=== PATIENT | female | born 1935 | race Caucasian/White ===

== ENCOUNTER 2020-04-28 15:12 | Emergency (ER) | payer MEDICARE, OTHER ==
--- NOTE | 2020-04-28 16:10 | EDM.PDOC ---
ED HPI GENERAL MEDICAL PROBLEM - General Chief Complaint: Lower Extremity Injury/Pain Stated Complaint: TWISTED ANKLE Time Seen by Provider: 04/28/20 16:00 Source of Information: Reports: Patient, Family History Limitations: Reports: No Limitations - History of Present Illness INITIAL COMMENTS - FREE TEXT/NARRATIVE: 84-year-old female who [facility], turned her ankle 2 days ago and now cannot bear any weight on her right foot. She has significant swelling and pain in the ankle and foot on the right side. No significant bruising. She has limited ability to ambulate in her apartment due to the pain so has not taken her Lasix the last couple of days and has some edema in her lower extremities from that as well. Most of the pain is around the ankle and in the arch of her foot. No other injury. Onset: Sudden Duration: Day(s): (2 days ago) Location: Reports: Lower Extremity, Right Associated Symptoms: Reports: Other (Some increased lower extremity edema due to her not taking her medications) - Related Data Allergies Allergy/AdvReac Type Severity Reaction Status Date / Time No Known Allergies Allergy Verified 04/28/20 15:40 Home Meds: Home Meds Acetaminophen [Tylenol] 1,000 mg PO TID 04/28/20 [History] Brimonidine Tartrate/Timolol [Combigan 0.2%-0.5% Eye Drops] 1 drop EYELF BID 04/28/20 [History] Brinzolamide [Azopt 1% Ophth Susp] 1 drop EYELF BID 04/28/20 [History] Cholecalciferol (Vitamin D3) [Vitamin D] 1 tab PO DAILY 04/28/20 [History] Furosemide [Lasix] 1 tab PO DAILY 04/28/20 [History] Gabapentin [Neurontin] 300 mg PO BID 04/28/20 [History] amLODIPine Besylate [Amlodipine Besylate] 1 tab PO BID 04/28/20 [History] carvediloL [Carvedilol] 1 tab PO QAM 04/28/20 [History] lisinopriL [Lisinopril] 1 tab PO QAM 04/28/20 [History] predniSONE [Prednisone] 1 tab PO BEDTIME 04/28/20 [History] Past Medical History HEENT History: Reports: Cataract, Glaucoma Cardiovascular History: Reports: Hypertension [employer] History: Reports: - Infectious Disease History Infectious Disease History: Reports: Chicken Pox, Measles, Mumps, Scarlet Fever - Past Surgical History HEENT Surgical History: Reports: Cataract Surgery, Other (See Below) Other HEENT Surgeries/Procedures: drain in left eye to releive pressure Female Surgical History: Reports: Hysterectomy Musculoskeletal Surgical History: Reports: Hip Replacement Social & Family History - Tobacco Use Smoking Status *Q: Former Smoker Years of Tobacco use: 20 Packs/Tins Daily: 0.5 Used Tobacco, but Quit: Yes Month/Year Tobacco Last Used: - Caffeine Use Caffeine Use: Reports: Coffee - Recreational Drug Use Recreational Drug Use: No Review of Systems - Review of Systems Review Of Systems: See Below Constitutional: Denies: Fever Respiratory: Denies: Shortness of Breath, Cough Cardiovascular: Denies: Chest Pain GI/Abdominal: Denies: Abdominal Pain Musculoskeletal: Reports: Other (Significant right ankle and foot pain with swelling) Skin: Denies: Bruising Neurological: Denies: Paresthesia ED EXAM, GENERAL - Physical Exam Exam: See Below Exam Limited By: No Limitations General Appearance: Alert, No Apparent Distress Head: Atraumatic Respiratory/Chest: No Respiratory Distress Extremities: Other (Exam is otherwise limited to the lower extremities. She has some pitting edema of both lower extremities around the ankle and foot, the right side however is more significant especially laterally. She is very tender to palpation anywhere around the ankle or on the top of the foot, and has significant increased pain with plantarflexion especially against resistance.) Neurological: Alert, Oriented, Other (Very hard of hearing) Psychiatric: Normal Affect, Normal Mood Skin Exam: Warm, Dry Course - Vital Signs Last Recorded V/S: Last Vital Signs Temp 96.0 F L 04/28/20 15:51 Pulse 84 04/28/20 15:51 Resp 16 04/28/20 15:51 BP 175/74 H 04/28/20 15:51 Pulse Ox 96 04/28/20 15:51 - Orders/Labs/Meds Orders: Active Orders 24 hr Category Date Time Status Ankle Min 3V Rt [CR] Stat Exams 04/28/20 16:05 Taken Foot Comp Min 3V Rt [CR] Stat Exams 04/28/20 16:05 Taken - Re-Assessments/Exams Free Text/Narrative Re-Assessment/Exam: 04/28/20 16:09 An x-ray of the right foot and right ankle were obtained. 04/28/20 16:31 X-rays showed significant osteoporosis but no fracture. A 3 inch Saran wrap was applied to the foot and she will use her walker to assist with ambulation through the and recheck with podiatry at the clinic on Saturday if not improving satisfactorily. Departure - Departure Time of Disposition: 16:41 Disposition: Home, Self-Care 01 Clinical Impression: Sprain of right ankle Qualifiers: Encounter type: initial encounter Involved ligament of ankle: anterior talofibular ligament Qualified Code(s): S93.491A - Sprain of other ligament of right ankle, initial encounter - Discharge Information Instructions: Ankle Sprain, [id number] Referrals: Delroy Alexander Sr, MD [Primary Care Provider] - Forms: ED Department Discharge Care Plan Goals: Wrap the ankle and foot for support, elevate when able and increase activity as tolerated. Recheck at the clinic next Saturday with Dr. Alba if not improving satisfactorily. Sepsis Event Note (ED) - Evaluation Sepsis Screening Result: No Definite Risk - My Orders Last 24 Hours: My Active Orders 04/28/20 16:05 Ankle Min 3V Rt [CR] Stat Foot Comp Min 3V Rt [CR] Stat - Assessment/Plan Last 24 Hours: My Active Orders 04/28/20 16:05 Ankle Min 3V Rt [CR] Stat Foot Comp Min 3V Rt [CR] Stat
--- NOTE | 2020-04-29 08:52 | CR ---
Ankle Min 3V Rt CLINICAL HISTORY: Pain, injury FINDINGS: The soft tissues are swollen, particularly over the lateral malleolus.. Bones are moderately osteoporotic. There is osteoarthritis. There is an ill-defined to the irregular linear lucency through the distal fibula. Nondisplaced fracture is not excluded. Impression: Moderate osteoporosis Osteoarthritis Irregular linear lucency through the distal fibula may represent a nondisplaced fracture. If clinically relevant short-term follow-up ankle x-ray is recommended
--- NOTE | 2020-04-29 08:54 | CR ---
FOOT RIGHT 3 views CLINICAL HISTORY:Pain, injury FINDINGS:There is a small calcaneal spur. Bones are osteopenic. There is diffuse osteoarthritic change. There are arterial calcifications suggesting diabetes. Impression: Osteoporosis Osteoarthritis No fracture seen
== END 2020-04-28 16:41 | disposition home or self-care (01) ==
LOC: JP.ED 15:12
DX: S93.491A Sprain of other ligament of right ankle, initial encounter (principal); I10 Essential (primary) hypertension; Z79.899 Other long term (current) drug therapy; Z87.891 Personal history of nicotine dependence; X58.XXXA Exposure to other specified factors, initial encounter; Y92.099 Unspecified place in other non-institutional residence as the place of occurrence of the external cause
CPT/HCPCS: 73610-26-RT; 73610-RT; 73630-26-RT; 73630-RT; 99283; 99283-25

== ENCOUNTER 2021-06-29 21:33 | Emergency (ER) | payer MEDICARE, OTHER ==
--- NOTE | 2021-06-30 00:42 | EDM.PDOC ---
ED HPI GENERAL MEDICAL PROBLEM - General Chief Complaint: Respiratory Problem Stated Complaint: VIA [facility] Time Seen by Provider: 06/29/21 21:44 Source of Information: Reports: Patient, EMS History Limitations: Reports: Other (It is very hard of hearing limiting her answering questions.) - History of Present Illness INITIAL COMMENTS - FREE TEXT/NARRATIVE: Isamar Deluna is an 86-year-old female who presents to the ED from the local assisted living via [facility] for evaluation of increased weakness, difficulty breathing in the presence of having Covid for the last 10 days. Unfortunately information is very limited as the patient normally sees Delroy Alexander MD and therefore has no local medical records accessible. She does live in assisted living but has been having increasing difficulty getting around because of the weakness. She cannot elaborate on what exactly prompted her to come in by ambulance today but she just states that she does not feel well. Her oxygenation has been 91 to 92% on room air without activity. She is afebrile. - Related Data Allergies Allergy/AdvReac Type Severity Reaction Status Date / Time No Known Allergies Allergy Verified 06/29/21 21:37 Home Meds: Home Meds Acetaminophen [Tylenol] 1,000 mg PO TID 04/28/20 [History] Brimonidine Tartrate/Timolol [Combigan 0.2%-0.5% Eye Drops] 1 drop EYELF BID 04/28/20 [History] Brinzolamide [Azopt 1% Ophth Susp] 1 drop EYELF BID 04/28/20 [History] Cholecalciferol (Vitamin D3) [Vitamin D] 1 tab PO DAILY 04/28/20 [History] Furosemide [Lasix] 1 tab PO DAILY 04/28/20 [History] Gabapentin [Neurontin] 300 mg PO BID 04/28/20 [History] amLODIPine Besylate [Amlodipine Besylate] 1 tab PO BID 04/28/20 [History] carvediloL [Carvedilol] 1 tab PO QAM 04/28/20 [History] lisinopriL [Lisinopril] 1 tab PO QAM 04/28/20 [History] predniSONE [Prednisone] 1 tab PO BEDTIME 04/28/20 [History] Past Medical History HEENT History: Reports: Cataract, Glaucoma Cardiovascular History: Reports: Hypertension 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: - Infectious Disease History Infectious Disease History: Reports: Chicken Pox, Measles, Mumps, Scarlet Fever - Past Surgical History HEENT Surgical History: Reports: Cataract Surgery, Other (See Below) Other HEENT Surgeries/Procedures: drain in left eye to releive pressure Female Surgical History: Reports: Hysterectomy Musculoskeletal Surgical History: Reports: Hip Replacement Social & Family History - Tobacco Use Tobacco Use Status *Q: Never Tobacco User - Caffeine Use Caffeine Use: Reports: None - Recreational Drug Use Recreational Drug Use: No ED ROS GENERAL - Review of Systems Review Of Systems: See Below Reason Not Obtained: Review of system is limited by the patient's ability to hear Constitutional: Reports: Chills, Malaise, Weakness, Decreased Appetite HEENT: Reports: No Symptoms Respiratory: Reports: Shortness of Breath, Cough Cardiovascular: Reports: No Symptoms Endocrine: Reports: Fatigue GI/Abdominal: Reports: Diarrhea, Nausea Musculoskeletal: Reports: Muscle Pain Neurological: Reports: Weakness (Generalized weakness), Other (Hard of hearing) Psychiatric: Reports: Anxiety Hematologic/Lymphatic: Reports: No Symptoms Immunologic: Reports: No Symptoms ED EXAM, GENERAL - Physical Exam Exam: See Below Exam Limited By: Other (Patient is very hard of hearing) General Appearance: Alert, Anxious, Mild Distress (Very whiny) Eye Exam: Bilateral Eye: EOMI, PERRL Nose: Clear Rhinorrhea Throat/Mouth: Normal Inspection, Normal Oropharynx, Normal Voice, No Airway Compromise Head: Atraumatic, Normocephalic Neck: Normal Inspection, Supple Respiratory/Chest: No Respiratory Distress, Lungs Clear, Normal Breath Sounds, No Accessory Muscle Use Cardiovascular: Normal Peripheral Pulses, Regular Rate, Rhythm, No Murmur Peripheral Pulses: 2+: Radial (L), Radial (R) GI/Abdominal: Soft, Non-Tender, Abnormal Bowel Sounds (Increased bowel sounds) Extremities: Non-Tender, No Pedal Edema, Normal Capillary Refill Neurological: Alert, No Motor/Sensory Deficits Psychiatric: Anxious Skin Exam: Warm, Dry Course - Vital Signs Last Recorded V/S: Last Vital Signs Temp 36.4 C 06/29/21 21:39 Pulse 84 06/30/21 01:04 Resp 18 06/29/21 23:49 BP 132/69 06/30/21 01:04 Pulse Ox 89 L 06/30/21 01:04 - Orders/Labs/Meds Orders: Active Orders 24 hr Category Date Time Status Ang Chest [CT] Stat Exams 06/30/21 00:48 Ordered Chest 1V Frontal [CR] Stat Exams 06/29/21 21:44 Taken UA W/MICROSCOPIC [URIN] Stat Lab 06/29/21 21:44 Ordered Iopamidol [Isovue-370 (76%)] Med 06/30/21 02:15 Active 57 ml IV . DIRECTED Sodium Chloride 0.9% [Normal Saline] 84 ml Med 06/30/21 02:15 Active IV ASDIRECTED Sodium Chloride 0.9% [Saline Flush] Med 06/30/21 00:48 Active 10 ml FLUSH ASDIRECTED PRN Saline Lock Insert [OM.PC] Routine Oth 06/30/21 00:48 Ordered Medication Orders Sodium Chloride (Normal Saline) 84 mls @ 3 mls/sec IV ASDIRECTED PACHECO Iopamidol (Iopamidol 755 Mg/Ml 100 Ml Bottle) 57 ml IV . DIRECTED PACHECO Sodium Chloride (Sodium Chloride 0.9% 10 Ml Syringe) 10 ml FLUSH ASDIRECTED PRN PRN Reason: Keep Vein Open Labs: Laboratory Tests 06/29/21 06/29/21 06/29/21 Range/Units 22:22 22:22 22:22 WBC 4.1 L (4.5-11.0) K/uL RBC 3.59 (3.30-5.50) M/uL Hgb 11.8 L (12.0-15.0) g/dL Hct 36.0 (36.0-48.0) % MCV 100 H (80-98) fL MCH 33 H (27-31) pg MCHC 33 (32-36) % Plt Count 86 L (150-400) K/uL Neut % (Auto) 74.4 H (36-66) % Lymph % (Auto) 17.6 L (24-44) % Cedar % (Auto) 7.6 H (2-6) % Eos % (Auto) 0.2 L (2-4) % Baso % (Auto) 0.2 (0-1) % D-Dimer, Quantitative 1133.22 H (0.0-500.0) ng/mL Sodium 136 L (140-148) mmol/L Potassium 3.6 (3.6-5.2) mmol/L Chloride 100 (100-108) mmol/L Carbon Dioxide 22 (21-32) mmol/L Anion Gap 17.6 H (5.0-14.0) mmol/L BUN 21 H (7-18) mg/dL Creatinine 1.0 (0.6-1.0) mg/dL Est Cr Clr Drug Dosing 38.50 mL/min Estimated GFR (MDRD) 53 L (>60) Glucose 73 L (74-106) mg/dL Lactic Acid (0.4-2.0) mmol/L Calcium 8.3 L (8.5-10.1) mg/dL Ferritin 399 H (8-388) ng/ml Total Bilirubin 0.4 (0.2-1.0) mg/dL AST 29 (15-37) U/L ALT 25 (12-78) U/L Alkaline Phosphatase 69 (46-116) U/L Lactate Dehydrogenase 175 (82-234) U/L C-Reactive Protein 12.76 H (0.0-0.3) mg/dL Total Protein 5.8 L (6.4-8.2) g/dL Albumin 2.7 L (3.4-5.0) g/dL Globulin 3.1 (2.3-3.5) g/dL Albumin/Globulin Ratio 0.9 L (1.2-2.2) SARS-CoV-2 RNA (JOSE MANUEL) (NEGATIVE) 06/29/21 06/29/21 Range/Units 22:22 22:36 WBC (4.5-11.0) K/uL RBC (3.30-5.50) M/uL Hgb (12.0-15.0) g/dL Hct (36.0-48.0) % MCV (80-98) fL MCH (27-31) pg MCHC (32-36) % Plt Count (150-400) K/uL Neut % (Auto) (36-66) % Lymph % (Auto) (24-44) % Cedar % (Auto) (2-6) % Eos % (Auto) (2-4) % Baso % (Auto) (0-1) % D-Dimer, Quantitative (0.0-500.0) ng/mL Sodium (140-148) mmol/L Potassium (3.6-5.2) mmol/L Chloride (100-108) mmol/L Carbon Dioxide (21-32) mmol/L Anion Gap (5.0-14.0) mmol/L BUN (7-18) mg/dL Creatinine (0.6-1.0) mg/dL Est Cr Clr Drug Dosing mL/min Estimated GFR (MDRD) (>60) Glucose (74-106) mg/dL Lactic Acid 1.0 (0.4-2.0) mmol/L Calcium (8.5-10.1) mg/dL Ferritin (8-388) ng/ml Total Bilirubin (0.2-1.0) mg/dL AST (15-37) U/L ALT (12-78) U/L Alkaline Phosphatase (46-116) U/L Lactate Dehydrogenase (82-234) U/L C-Reactive Protein (0.0-0.3) mg/dL Total Protein (6.4-8.2) g/dL Albumin (3.4-5.0) g/dL Globulin (2.3-3.5) g/dL Albumin/Globulin Ratio (1.2-2.2) SARS-CoV-2 RNA (JOSE MANUEL) Positive H (NEGATIVE) Meds: Medications Generic Name Dose Route Start Last Admin Trade Name Freq PRN Reason Stop Dose Admin Sodium Chloride 84 mls @ 3 mls/sec 06/30/21 02:15 Normal Saline IV ASDIRECTED PACHECO Iopamidol 57 ml 06/30/21 02:15 Iopamidol 755 Mg/Ml 100 Ml Bottle IV . DIRECTED PACHECO Sodium Chloride 10 ml 06/30/21 00:48 Sodium Chloride 0.9% 10 Ml Syringe FLUSH ASDIRECTED PRN Keep Vein Open Discontinued Medications Generic Name Dose Route Start Last Admin Trade Name Freq PRN Reason Stop Dose Admin Sodium Chloride 10 ml 06/30/21 02:15 Sodium Chloride 0.9% 10 Ml Syringe FLUSH 06/30/21 02:16 ONETIME ONE - Radiology Interpretation Free Text/Narrative:: Reviewed the 1 view chest x-ray which does not show any acute infiltrates. There is hyperinflation of the lungs consistent with COPD. - Re-Assessments/Exams Free Text/Narrative Re-Assessment/Exam: 06/30/21 00:44 I reviewed the patient's labs showing a leukocyte count of 4.1, hemoglobin of 11.8, hematocrit of 36.0 and a platelet count of 86,000. The comprehensive metabolic panel is remarkable for a sodium 136, potassium 3.6, chloride 100, bicarbonate of 22, BUN of 21 with a creatinine 1.0 and a glucose of 73. GFR is calculated at 53. Her AST and ALT are both normal. Alkaline phosphatase is normal. The C-reactive protein is elevated at 12.76, the ferritin is elevated at 3.99, and the D-dimer is markedly elevated at 1133. We will proceed with a CT angiogram of the chest to make sure that there is not evidence of pulmonary emboli. The patient is borderline on requiring hospitalization with her SPO2 ranging anywhere from 88 to 92% on room air. She does have comorbidities given her advanced age, lack of vaccination status, and her COPD. I will try to arrange for a bed for her, however, we are currently full at this time. It is believed that she was Covid positive more than 10 days ago so she is not eligible for the monoclonal antibody. 06/30/21 01:06 I discussed the case with Dr. Ramirez at [facility] who states that they have beds but is not willing to accept the patient until the day crew comes on at 7 AM. He recommends calling back after 7 AM for acceptance. 06/30/21 02:12 I discussed the case with Dr. Gilbert from [facility] in [place], [place] who accepts the patient in transfer for admission to their facility for further care. 06/30/21 02:[address] angiogram of the chest. Departure - Departure Time of Disposition: 02:13 Disposition: DC/Tfer to [facility], [facility] 02 Clinical Impression: COVID-19, Hypoxia - Discharge Information Referrals: Delroy Alexander Sr, MD [Primary Care Provider] - Forms: ED Department Discharge Sepsis Event Note (ED) - Evaluation Sepsis Screening Result: No Definite Risk - Focused Exam Vital Signs: Vital Signs Temp Pulse Resp BP Pulse Ox 06/30/21 01:04 84 132/69 89 L 06/29/21 23:49 83 18 115/70 93 L 06/29/21 22:30 82 127/63 92 L 06/29/21 21:39 36.4 C 89 20 147/81 H 93 L - Problem List & Annotations (1) COVID-19 SNOMED Code(s): 588467305 Code(s): U07.1 - COVID-19 Status: Acute Priority: High Current Visit: Yes (2) Hypoxia SNOMED Code(s): 390296478 Code(s): R09.02 - HYPOXEMIA Status: Acute Priority: High Current Visit: Yes - Problem List Review Problem List Initiated/Reviewed/Updated: Yes - My Orders Last 24 Hours: My Active Orders 06/29/21 21:44 Chest 1V Frontal [CR] Stat UA W/MICROSCOPIC [URIN] Stat 06/30/21 00:48 Ang Chest [CT] Stat Sodium Chloride 0.9% [Saline Flush] 10 ml FLUSH ASDIRECTED PRN Saline Lock Insert [OM.PC] Routine 06/30/21 02:15 Iopamidol [Isovue-370 (76%)] 57 ml IV . DIRECTED Sodium Chloride 0.9% [Normal Saline] 84 ml IV ASDIRECTED - Assessment/Plan Last 24 Hours: My Active Orders 06/29/21 21:44 Chest 1V Frontal [CR] Stat UA W/MICROSCOPIC [URIN] Stat 06/30/21 00:48 Ang Chest [CT] Stat Sodium Chloride 0.9% [Saline Flush] 10 ml FLUSH ASDIRECTED PRN Saline Lock Insert [OM.PC] Routine 06/30/21 02:15 Iopamidol [Isovue-370 (76%)] 57 ml IV . DIRECTED Sodium Chloride 0.9% [Normal Saline] 84 ml IV ASDIRECTED
[2021-06-30] MEDS ORDERED: Sodium Chloride 0.9% 10 ML Syringe FLUSH PRN (00:48)
[2021-06-30] MEDS ORDERED: Sodium Chloride 0.9% 10 ML Syringe FLUSH ONE (02:15)
[2021-06-30] MEDS ORDERED: Iopamidol 755 Mg/ML 100 ML Bottle IV SCH (02:15)
--- NOTE | 2021-06-30 09:25 | CR ---
CHEST: Portable 06/29/2021 at 10:04 PM CLINICAL HISTORY:Dyspnea, weakness, covid COMPARISON:2012 FINDINGS: Heart size and pulmonary vascularity are normal. Patient has large hiatal hernia. There is left lower hemithorax opacification which may represent some superimposed consolidation. There may be a small left effusion. Right lung is clear Impression: Dense left lower lobe infiltrate or consolidation Large hiatal hernia
== END 2021-06-30 03:22 ==
LOC: JP.ED 21:33
DX: U07.1 COVID-19 (principal); R09.02 Hypoxemia; I10 Essential (primary) hypertension; Z79.899 Other long term (current) drug therapy
CPT/HCPCS: 36415; 71045; 80053; 82728; 83605; 83615; 85025; 85379; 86140; 99285; U0002

== ENCOUNTER 2021-07-13 09:54 | Inpatient (IN) | payer MEDICARE, OTHER ==
[2021-07-13] MEDS ORDERED: Sodium Chloride 0.9% 1,000 ML IV SCH ×2 (10:00→17:00)
--- NOTE | 2021-07-13 10:34 | EDM.PDOC ---
<Joe Smith - Last Filed: 07/13/21 18:11> ED HPI GENERAL MEDICAL PROBLEM - General Chief Complaint: General Stated Complaint: TIRED WEAKNESS Time Seen by Provider: 07/13/21 10:10 Source of Information: Reports: EMS, Snf Records History Limitations: Reports: Physical Impairment (Patient is minimally responsive, really not answering questions consistently) - History of Present Illness INITIAL COMMENTS - FREE TEXT/NARRATIVE: 86-year-old female who is in the assisted living section of the [facility] but over the past several weeks has been doing very poorly, failing to care for herself, never getting out of bed and soiling herself in bed. She is not eating or drinking, she is a DNR and seems to have no interest i n living. She was sent in by ambulance to get hydrated, but mainly to move [facility] for the consideration of hospice or comfort care. Onset: Unknown/Unsure Duration: Chronic Associated Symptoms: Reports: Confusion, Other (Decreased responsiveness, decreased oral intake. Incontinence) - Related Data Allergies Allergy/AdvReac Type Severity Reaction Status Date / Time No Known Allergies Allergy Verified 07/13/21 09:59 Home Meds: Home Meds Acetaminophen [Tylenol] 1,000 mg PO TID 04/28/20 [History] Brimonidine Tartrate/Timolol [Combigan 0.2%-0.5% Eye Drops] 1 drop EYELF BID 04/28/20 [History] Brinzolamide [Azopt 1% Ophth Susp] 1 drop EYELF BID 04/28/20 [History] Cholecalciferol (Vitamin D3) [Vitamin D] 1 tab PO DAILY 04/28/20 [History] Furosemide [Lasix] 1 tab PO DAILY PRN 04/28/20 [History] Gabapentin [Neurontin] 200 mg PO BID 04/28/20 [History] amLODIPine Besylate [Amlodipine Besylate] 1 tab PO BID 04/28/20 [History] carvediloL [Carvedilol] 1 tab PO BID 04/28/20 [History] lisinopriL [Lisinopril] 1 tab PO QAM 04/28/20 [History] Calcium Carbonate [Calcium Antacid] 500 mg PO DAILY 07/13/21 [History] Ergocalciferol (Vitamin D2) [Vitamin D2] 1.25 mg PO WEEKLY 07/13/21 [History] Folic Acid 1 mg PO DAILY 07/13/21 [History] Multivit-Min/FA/Lycopen/Lutein [Certavite Senior Tablet] 1 tab PO DAILY 07/13/21 [History] metHOTREXate sodium [Methotrexate] 4 tab PO WEEKLY 07/13/21 [History] Past Medical History HEENT History: Reports: Cataract, Glaucoma Cardiovascular History: Reports: Hypertension [employer] History: Reports: - Infectious Disease History Infectious Disease History: Reports: Chicken Pox, Measles, Mumps, Novel Coronavirus, Scarlet Fever - Past Surgical History Head Surgeries/Procedures: Reports: None HEENT Surgical History: Reports: Cataract Surgery, Other (See Below) Other HEENT Surgeries/Procedures: drain in left eye to releive pressure Cardiovascular Surgical History: Reports: None Female Surgical History: Reports: Hysterectomy Musculoskeletal Surgical History: Reports: Hip Replacement Social & Family History - Caffeine Use Caffeine Use: Reports: None ED ROS GENERAL - Review of Systems Review Of Systems: See Below Reason Not Obtained: Obtained from nursing notes and EMS only Constitutional: Denies: Fever 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) Respiratory: Denies: Shortness of Breath Cardiovascular: Denies: Chest Pain GI/Abdominal: Denies: Nausea, Vomiting : Reports: Incontinence Skin: Reports: Bruising (Bruising is present on the extremities) Neurological: Reports: Confusion, Weakness ED EXAM, GENERAL - Physical Exam Exam: See Below Exam Limited By: Other (Unable to cooperate, lethargic) General Appearance: Lethargic Eye Exam: Left Eye: Other (Significant scarring from past injury to the left cornea) Throat/Mouth: Other (Somewhat dry mucous membranes) Head: Atraumatic, Normocephalic Neck: Supple, Non-Tender Respiratory/Chest: Lungs Clear Cardiovascular: Regular Rate, Rhythm GI/Abdominal: Soft, Non-Tender Extremities: Other Neurological: Inattentive, Confused (Somewhat cachectic extremities, no edema), Slow to Respond Psychiatric: Depressed Mood Skin Exam: Warm, Dry, Other (Skin is very thin especially the lower extremities show scattered bruising and vascular insufficiency changes) Course - Re-Assessments/Exams Free Text/Narrative Re-Assessment/Exam: 07/13/21 10:33 Patient will be hydrated with 500 cc an hour normal saline, a quick cath in and out UA was obtained as well as a CBC and BMP however other than hydration no further care will be given at this time. Discharge planning consultation will be done to attempt to get the patient admitted into the continuous [facility] area of the jail 07/13/21 11:58 Labs returned showing dehydration with very high ketones in her urine as well as a UTI. Urine was cultured and 1 g of Rocephin IV was given along with the IV fluids. Discharge planning consultation is pending. 07/13/21 15:33 Patient did become somewhat more alert after the IV fluids but still confused and somewhat agitated. According to the family and nursing, she was ambulating and visiting 4 days ago so this is a fairly significant change so a CT of her head without contrast was ordered. 07/13/21 16:[address] showed significant atrophy but no acute findings. Patient will be held in the emergency room until an admit bed is available to initiate comfort cares and consult hospice if the family wishes. 07/13/21 18:11 Care was turned over to evening shift to continue watching the patient and treat symptomatically for comfort until admission tomorrow. Departure - Departure Disposition: Admitted As Inpatient 67 Clinical Impression: Mild dehydration, Weakness UTI (urinary tract infection) Qualifiers: Urinary tract infection type: site unspecified Hematuria presence: without hematuria Qualified Code(s): N39.0 - Urinary tract infection, site not specified - Discharge Information Referrals: PCP,None [Primary Care Provider] - Forms: ED Department Discharge Sepsis Event Note (ED) - Evaluation Sepsis Screening Result: No Definite Risk <Reza Hinkle - Last Filed: 07/13/21 21:58> Course - Vital Signs Last Recorded V/S: Last Vital Signs Temp 36.3 C 07/13/21 10:15 Pulse 95 07/13/21 10:15 Resp 13 07/13/21 10:15 BP 138/72 07/13/21 10:15 Pulse Ox 91 L 07/13/21 10:15 - Orders/Labs/Meds Orders: Active Orders 24 hr Category Date Time Status CULTURE URINE [RM] Stat Lab 07/13/21 11:17 Received Sodium Chloride 0.9% [Normal Saline] 1,000 ml Med 07/13/21 10:00 Active IV ASDIRECTED Sodium Chloride 0.9% [Normal Saline] 1,000 ml Med 07/13/21 17:00 Active IV ASDIRECTED Medication Orders Sodium Chloride (Normal Saline) 1,000 mls @ 1,000 mls/hr IV ASDIRECTED PACHECO Last Admin: 07/13/21 10:55 Dose: 1,000 mls/hr Documented by: RUBENS Sodium Chloride (Normal Saline) 1,000 mls @ 500 mls/hr IV ASDIRECTED PACHECO Last Admin: 07/13/21 16:58 Dose: 500 mls/hr Documented by: RUBENS Labs: Laboratory Tests 07/13/21 07/13/21 07/13/21 Range/Units 10:19 10:19 10:34 WBC 13.0 H (4.5-11.0) K/uL RBC 3.55 (3.30-5.50) M/uL Hgb 11.8 L (12.0-15.0) g/dL Hct 36.1 (36.0-48.0) % MCV 102 H (80-98) fL MCH 33 H (27-31) pg MCHC 33 (32-36) % Plt Count 126 L (150-400) K/uL Neut % (Auto) 78.6 H (36-66) % Lymph % (Auto) 10.2 L (24-44) % Pope % (Auto) 10.9 H (2-6) % Eos % (Auto) 0.2 L (2-4) % Baso % (Auto) 0.1 (0-1) % Sodium 134 L (140-148) mmol/L Potassium 4.2 (3.6-5.2) mmol/L Chloride 97 L (100-108) mmol/L Carbon Dioxide 23 (21-32) mmol/L Anion Gap 18.2 H (5.0-14.0) mmol/L BUN 18 (7-18) mg/dL Creatinine 0.9 (0.6-1.0) mg/dL Est Cr Clr Drug Dosing 43.02 mL/min Estimated GFR (MDRD) 60 (>60) Glucose 51 L (74-106) mg/dL Calcium 8.4 L (8.5-10.1) mg/dL Urine Color Yellow (YELLOW) Urine Appearance Cloudy A (CLEAR) Urine pH 7.0 (5.0-8.0) Ur Specific [place] 1.025 (1.008-1.030) Urine Protein 30 H (NEGATIVE) mg/dL Urine Glucose (UA) Negative (NEGATIVE) mg/dL Urine Ketones >=160 H (NEGATIVE) mg/dL Urine Occult Blood Small H (NEGATIVE) Urine Nitrite Positive H (NEGATIVE) Urine Bilirubin Negative (NEGATIVE) Urine Urobilinogen 1.0 (0.2-1.0) EU/dL Ur Leukocyte Esterase Large H (NEGATIVE) Urine RBC 10-20 H (0-5) Urine WBC 75-100 H (0-5) Ur Epithelial Cells Rare Amorphous Sediment Not seen Urine Bacteria Many Urine Mucus Moderate Meds: Medications Generic Name Dose Route Start Last Admin Trade Name Freq PRN Reason Stop Dose Admin Sodium Chloride 1,000 mls @ 1,000 mls/hr 07/13/21 10:00 07/13/21 10:55 Normal Saline IV 1,000 mls/hr ASDIRECTED PACHECO Administration Sodium Chloride 1,000 mls @ 500 mls/hr 07/13/21 17:00 07/13/21 16:58 Normal Saline IV 500 mls/hr ASDIRECTED PACHECO Administration Discontinued Medications Generic Name Dose Route Start Last Admin Trade Name Freq PRN Reason Stop Dose Admin Ceftriaxone Sodium 1 gm/ 50 mls @ 100 mls/hr 07/13/21 11:45 07/13/21 11:27 Sodium Chloride IV 07/13/21 12:14 100 mls/hr ONETIME ONE Administration Lorazepam 0.05 mg 07/13/21 15:39 07/13/21 15:46 Lorazepam 2 Mg/Ml Sdv IVPUSH 07/13/21 15:40 0.05 mg ONETIME ONE Administration Lorazepam 0.5 mg 07/13/21 15:55 07/13/21 15:57 Lorazepam 2 Mg/Ml Sdv IVPUSH 07/13/21 15:56 0.5 mg ONETIME ONE Administration Lorazepam 0.5 mg 07/13/21 20:04 07/13/21 20:54 Lorazepam 2 Mg/Ml Sdv IVPUSH 07/13/21 20:05 0.5 mg ONETIME ONE Administration Morphine Sulfate 2 mg 07/13/21 20:06 07/13/21 20:48 Morphine 2 Mg/Ml Syringe IVPUSH 07/13/21 20:07 2 mg ONETIME ONE Administration Ondansetron HCl 4 mg 07/13/21 20:53 10/14/21 21:05 Ondansetron 4 Mg/2 Ml Sdv IVPUSH 07/13/21 20:54 4 mg ONETIME ONE Administration Departure - Departure Time of Disposition: 22:00 Condition: Fair - Discharge Information *PRESCRIPTION DRUG MONITORING PROGRAM REVIEWED*: Not Applicable *COPY OF PRESCRIPTION DRUG MONITORING REPORT IN PATIENT TOBIN: Not Applicable Sepsis Event Note (ED) - Focused Exam Vital Signs: Vital Signs Temp Pulse Resp BP Pulse Ox 07/13/21 10:15 36.3 C 95 13 138/72 91 L 07/13/21 10:00 36.3 C 95 13 138/72 91 L
[2021-07-13] MEDS ORDERED: cefTRIAXone 1 GM in Sodium Chloride 0.9% 50 ML IV ONE ×2 (11:11→11:45)
[2021-07-13] MEDS ORDERED: LORazepam 2 MG/ML SDV IVPUSH ONE ×3 (15:39→20:04)
--- NOTE | 2021-07-13 16:16 | CRLCT ---
For Patients: As a result of the Century Cures Act, medical imaging exams and procedure reports are released immediately into your electronic medical record. You may view this report before your referring provider. If you have questions, please contact your health care provider. Indication: Change in mental status Technique: Volumetric multidetector CT images of the head were obtained without the administration of low osmolar intravenous contrast. Comparison: None available Findings: There is no intra-axial or extra-axial fluid collection. There is no mass effect or midline shift. There is age-related cortical atrophy with mild sulcal widening and ex vacuo dilatation of the lateral ventricles. There is moderate confluent chronic small vessel disease change within the subcortical and periventricular white matter. The remaining brain parenchyma is grossly preserved in attenuation and grimes-white differentiation. The orbits and their contents are grossly within normal limits. The bony calvarium is grossly intact. There is minimal mucosal thickening seen in the paranasal sinuses. The mastoid air cells are well aerated. Impression: Age-related and extensive chronic small-vessel disease changes of the brain without evidence of acute intracranial abnormality. Please note that all CT scans at this facility use dose modulation, iterative reconstruction, and/or weight-based dosing when appropriate to reduce radiation dose to as low as reasonably achievable. Dictated by Israel Angeles MD @ 07/13/2021 4:15:00 PM (Electronically Signed)
[2021-07-13] MEDS ORDERED: Morphine 2 MG/ML SYRINGE IVPUSH ONE (20:06)
[2021-07-13] MEDS ORDERED: Ondansetron 4 MG/2 ML SDV IVPUSH ONE (20:53)
[2021-07-14] MEDS ORDERED: LORazepam 0.5 MG Tab PO PRN (00:20)
[2021-07-14] MEDS ORDERED: LORazepam 2 MG/ML SDV IVPUSH PRN (00:45)
[2021-07-14] MEDS: Morphine 2 MG/ML SYRINGE IVPUSH PRN ×4 (00:59→08:36)
[2021-07-14] MEDS: Acetaminophen 650 MG Supp RECTAL PRN (03:41)
[2021-07-14] MEDS ORDERED: Piperacillin/Tazobactam 3.375 GM in Sodium Chloride 0.9% 50 ML IV SCH (06:15)
[2021-07-14] MEDS: Carvedilol 12.5 MG Tab PO SCH ×2 (08:53→22:16)
[2021-07-14] MEDS: amLODIPine 5 MG Tab PO SCH (08:54)
[2021-07-14] MEDS: Calcium Carbonate 500 MG Tab.Chew PO SCH (08:54)
[2021-07-14] MEDS: Multivitamins with Iron/Calcium/Folic Acid/Minerals Tab PO SCH (08:54)
[2021-07-14] MEDS: Lisinopril 20 MG Tab PO SCH (08:54)
[2021-07-14] MEDS: Folic Acid 1 MG Tab PO SCH (08:54)
--- NOTE | 2021-07-14 09:33 | CR ---
CHEST: Portable 07/14/2021 at 12:57 AM CLINICAL HISTORY:Dyspnea COMPARISON:06/29/2021 FINDINGS: Heart size is mildly enlarged. Pulmonary vascularity is mildly cephalized. This may be positional. Patient has a large hiatal hernia. This is similar to prior study. There is some patchy density in the right infrahilar region. Retrocardiac infiltrate would be difficult to exclude. Impression: 30 megaly with mild vascular cephalization. This may represent some pulmonary venous hypertension Patchy right infrahilar density is suspect for pneumonic infiltrate Large hiatal hernia GIVE findings in the left lung base upright two-view chest would be helpful when patient's condition allows
[2021-07-14] MEDS ORDERED: cefTRIAXone 1 GM in Sodium Chloride 0.9% 50 ML IV SCH (11:00)
[2021-07-14] MEDS: Timolol Maleate 0.5% Ophth Soln 5 ML Bottle EYELF SCH (11:23)
[2021-07-14] MEDS: Brimonidine 0.2% Ophth Soln 5 ML Bottle EYELF SCH (11:23)
[2021-07-14] MEDS: Morphine 10 MG/0.5 ML Oral Syringe PO PRN ×5 (11:23→22:22)
[2021-07-14] MEDS: Dorzolamide 2% Ophth Soln 10 ML Bottle EYELF SCH (11:23)
[2021-07-14] MEDS ORDERED: Piperacillin/Tazobactam/Dext 3.375 GM in Premix Bag 1 BAG IV SCH (12:00)
[2021-07-14] MEDS: LORazepam ORAL Concentrate 1MG/0.5ML U/D PO PRN (15:14)
--- NOTE | 2021-07-14 18:58 | PCM.HP.2 ---
H&P History of Present Illness - General Date of Service: 07/13/21 Admit Problem/Dx: Admission Diagnosis/Problem Admission Diagnosis/Problem Urosepsis Source of Information: EMS, Family, RN Notes Reviewed History Limitations: Reports: Altered Mental Status - History of Present Illness Initial Comments - Free Text/Narative: History of her from pneumonia over 2 weeks ago and went [facility] and was sent back and now she's not eating and she is very dry and was diagnosed to having a urinary tract infection. In speaking with family they decided to go on hospice and DNR. Also DNI. Onset of Symptoms: Reports: Gradual - Related Data Allergies/Adverse Reactions: Allergies Allergy/AdvReac Type Severity Reaction Status Date / Time No Known Allergies Allergy Verified 07/13/21 09:59 Home Medications: Home Meds Acetaminophen [Tylenol] 1,000 mg PO TID 04/28/20 [History] Brimonidine Tartrate/Timolol [Combigan 0.2%-0.5% Eye Drops] 1 drop EYELF BID 04/28/20 [History] Brinzolamide [Azopt 1% Ophth Susp] 1 drop EYELF BID 04/28/20 [History] Cholecalciferol (Vitamin D3) [Vitamin D] 1 tab PO DAILY 04/28/20 [History] Furosemide [Lasix] 1 tab PO DAILY PRN 04/28/20 [History] Gabapentin [Neurontin] 200 mg PO BID 04/28/20 [History] amLODIPine Besylate [Amlodipine Besylate] 1 tab PO BID 04/28/20 [History] carvediloL [Carvedilol] 1 tab PO BID 04/28/20 [History] lisinopriL [Lisinopril] 1 tab PO QAM 04/28/20 [History] Calcium Carbonate [Calcium Antacid] 500 mg PO DAILY 07/13/21 [History] Ergocalciferol (Vitamin D2) [Vitamin D2] 1.25 mg PO WEEKLY 07/13/21 [History] Folic Acid 1 mg PO DAILY 07/13/21 [History] Multivit-Min/FA/Lycopen/Lutein [Certavite Senior Tablet] 1 tab PO DAILY 07/13/21 [History] metHOTREXate sodium [Methotrexate] 4 tab PO WEEKLY 07/13/21 [History] Past Medical History HEENT History: Reports: Cataract, Glaucoma Cardiovascular History: Reports: Hypertension HEAD [employer] History: Reports: - Infectious Disease History Infectious Disease History: Reports: Chicken Pox, Measles, Mumps, Novel Coronavirus, Scarlet Fever - Past Surgical History Head Surgeries/Procedures: Reports: None HEENT Surgical History: Reports: Cataract Surgery, Other (See Below) Other HEENT Surgeries/Procedures: drain in left eye to releive pressure Cardiovascular Surgical History: Reports: None Female Surgical History: Reports: Hysterectomy Neurological Surgical History: Reports: None Musculoskeletal Surgical History: Reports: Hip Replacement Social & Family History - Family History Family Medical History: No Pertinent Family History - Caffeine Use Caffeine Use: Reports: None H&P Review of Systems - Review of Systems: Review Of Systems: See Below General: Reports: ROS unobtainable Exam - Exam Exam: See Below - Vital Signs Vital Signs: Last Vital Signs Temp 97.7 F 07/14/21 08:47 Pulse 95 07/14/21 08:47 Resp 20 07/14/21 08:47 BP 73/42 L 07/14/21 08:47 Pulse Ox 95 07/14/21 08:47 Weight: 138 lb - Exam General: Obtunded HEENT: Other (does not respond except pain no verbal response except moaning.) Lungs: Other (adequate breath sounds bilaterally) Cardiovascular: Systolic Murmur, Other (controlled rate and rhythm) GI/Abdominal Exam: Soft Extremities: Leg Pain Peripheral Pulses: 1+: Radial (L), Radial (R) Skin: Warm, Rash DTR: 1+: Bicep (L), Bicep (R) - Patient Data Lab Results Last 24 hrs: Laboratory Results - last 24 hr 07/13/21 07/14/21 07/14/21 Range/Units 22:16 01:30 05:43 WBC 10.2 (4.5-11.0) K/uL RBC 3.12 L (3.30-5.50) M/uL Hgb 10.1 L (12.0-15.0) g/dL Hct 31.5 L (36.0-48.0) % MCV 101 H (80-98) fL MCH 32 H (27-31) pg MCHC 32 (32-36) % Plt Count 132 L (150-400) K/uL Neut % (Auto) 74.3 H (36-66) % Lymph % (Auto) 11.6 L (24-44) % [place] % (Auto) 13.8 H (2-6) % Eos % (Auto) 0.2 L (2-4) % Baso % (Auto) 0.1 (0-1) % Sodium (140-148) mmol/L Potassium (3.6-5.2) mmol/L Chloride (100-108) mmol/L Carbon Dioxide (21-32) mmol/L Anion Gap (5.0-14.0) mmol/L BUN (7-18) mg/dL Creatinine (0.6-1.0) mg/dL Est Cr Clr Drug Dosing mL/min Estimated GFR (MDRD) (>60) Glucose (74-106) mg/dL Calcium (8.5-10.1) mg/dL Total Bilirubin (0.2-1.0) mg/dL AST (15-37) U/L ALT (12-78) U/L Alkaline Phosphatase (46-116) U/L Total Protein (6.4-8.2) g/dL Albumin (3.4-5.0) g/dL Globulin (2.3-3.5) g/dL Albumin/Globulin Ratio (1.2-2.2) Vitamin D 25-Hydroxy 75.4 (30-100) ng/mL SARS-CoV-2 RNA (JOSE MANUEL) Positive H (NEGATIVE) 07/14/21 Range/Units 05:43 WBC (4.5-11.0) K/uL RBC (3.30-5.50) M/uL Hgb (12.0-15.0) g/dL Hct (36.0-48.0) % MCV (80-98) fL MCH (27-31) pg MCHC (32-36) % Plt Count (150-400) K/uL Neut % (Auto) (36-66) % Lymph % (Auto) (24-44) % [place] % (Auto) (2-6) % Eos % (Auto) (2-4) % Baso % (Auto) (0-1) % Sodium 137 L (140-148) mmol/L Potassium 3.9 (3.6-5.2) mmol/L Chloride 102 (100-108) mmol/L Carbon Dioxide 18 L (21-32) mmol/L Anion Gap 20.9 H (5.0-14.0) mmol/L BUN 17 (7-18) mg/dL Creatinine 1.2 H (0.6-1.0) mg/dL Est Cr Clr Drug Dosing 32.09 mL/min Estimated GFR (MDRD) 43 L (>60) Glucose 65 L (74-106) mg/dL Calcium 7.9 L (8.5-10.1) mg/dL Total Bilirubin 0.6 (0.2-1.0) mg/dL AST 21 (15-37) U/L ALT 26 (12-78) U/L Alkaline Phosphatase 87 (46-116) U/L Total Protein 4.3 L (6.4-8.2) g/dL Albumin 1.9 L (3.4-5.0) g/dL Globulin 2.4 (2.3-3.5) g/dL Albumin/Globulin Ratio 0.8 L (1.2-2.2) Vitamin D 25-Hydroxy (30-100) ng/mL SARS-CoV-2 RNA (JOSE MANUEL) (NEGATIVE) Result Diagrams: 07/14/21 05:43 07/14/21 05:43 Darrian Results Last 24 hrs: Microbiology 07/13/21 11:17 Urine Culture - Preliminary Urine, Quick Cath (In-Out) Sepsis Event Note - Evaluation Sepsis Screening Result: No Definite Risk - Focused Exam Vital Signs: Vital Signs Temp Pulse Resp BP Pulse Ox 07/14/21 08:47 97.7 F 95 20 73/42 L 95 Problem List Initiated/Reviewed/Updated: Yes Orders Last 24hrs: Active Orders 24 hr Category Date Time Status Admission Diagnosis [ADT] Routine ADT 07/13/21 23:40 Ordered Admission Status [Patient Status] [ADT] Routine ADT 07/13/21 23:40 Active Regular Diet [DIET] Diet 07/14/21 Breakfast Active CULTURE BLOOD [BC] Urgent Lab 07/14/21 01:30 Received CULTURE BLOOD [BC] Urgent Lab 07/14/21 02:00 Received Acetaminophen [Tylenol] Med 07/14/21 01:17 Active 650 mg RECTAL Q4H PRN Brimonidine [Alphagan 0.2% Ophth Soln] Med 07/14/21 09:00 Active 0 ml EYELF BID Calcium Carbonate [Tums] Med 07/14/21 09:00 Active 500 mg PO DAILY Dorzolamide [Trusopt 2% Ophth Soln] Med 07/14/21 09:00 Active 0 ml EYELF BID Folic Acid Med 07/14/21 09:00 Active 1 mg PO DAILY LORazepam [Ativan ORAL Concentrate 1MG/0.5 ML U/D] Med 07/14/21 08:48 Active 1 mg PO Q4H PRN Methotrexate Med 07/16/21 08:00 Active 10 mg PO Q7D Morphine [Morphine 10 MG/0.5 ML Oral Syringe] Med 07/14/21 15:44 Active 10 mg PO Q1H PRN Multivitamins w-Iron/Ca/FA/Min [Thera M Plus] Med 07/14/21 09:00 Active 1 tab PO DAILY amLODIPine [Norvasc] Med 07/14/21 09:00 Active 5 mg PO DAILY carvediloL [Coreg] Med 07/14/21 09:00 Active 25 mg PO BID lisinopriL [Prinivil] Med 07/14/21 09:00 Active 40 mg PO DAILY timoloL maleate [Timoptic 0.5% Ophth Soln] Med 07/14/21 09:00 Active 0 ml EYELF BID Blood Culture x2 Reflex Set [OM.PC] Urgent Oth 07/14/21 00:18 Ordered Comfort Measures [OM.PC] Routine Oth 07/14/21 08:48 Ordered Resuscitation Status Routine Resus Stat 07/14/21 08:48 Ordered Medication Orders Acetaminophen (Acetaminophen 650 Mg Supp) 650 mg RECTAL Q4H PRN PRN Reason: Temperature Last Admin: 07/14/21 03:41 Dose: 650 mg Documented by: LAURA Amlodipine Besylate (Amlodipine 5 Mg Tab) 5 mg PO DAILY [facility] Last Admin: 07/14/21 08:54 Dose: Not Given Documented by: TIEN Brimonidine Tartrate (Brimonidine 0.2% Ophth Soln 5 Ml Bottle) 0 ml EYELF BID [facility] Last Admin: 07/14/21 11:23 Dose: 1 drop Documented by: TIEN Calcium Carbonate/Glycine (Calcium Carbonate 500 Mg Tab.Chew) 500 mg PO DAILY [facility] Last Admin: 07/14/21 08:54 Dose: Not Given Documented by: TIEN Carvedilol (Carvedilol 12.5 Mg Tab) 25 mg PO BID [facility] Last Admin: 07/14/21 08:53 Dose: Not Given Documented by: TIEN Dorzolamide HCl (Dorzolamide 2% Ophth Soln 10 Ml Bottle) 0 ml EYELF BID [facility] Last Admin: 07/14/21 11:23 Dose: 1 drop Documented by: TIEN Folic Acid (Folic Acid 1 Mg Tab) 1 mg PO DAILY [facility] Last Admin: 07/14/21 08:54 Dose: Not Given Documented by: TIEN Lisinopril (Lisinopril 20 Mg Tab) 40 mg PO DAILY [facility] Last Admin: 07/14/21 08:54 Dose: Not Given Documented by: TIEN Lorazepam (Lorazepam Oral Concentrate 1mg/0.5ml U/D) 1 mg PO Q4H PRN PRN Reason: Anxiety Last Admin: 07/14/21 15:14 Dose: 1 mg Documented by: TIEN Methotrexate (Methotrexate 2.5 Mg Tab) 10 mg PO Q7D [facility] Morphine Sulfate (Morphine 10 Mg/0.5 Ml Oral Syringe) 10 mg PO Q1H PRN PRN Reason: Pain Multivitamins/Minerals (Multivitamins With Iron/Calcium/Folic Acid/Minerals Tab) 1 tab PO DAILY [facility] Last Admin: 07/14/21 08:54 Dose: Not Given Documented by: TIEN Timolol Maleate (Timolol Maleate 0.5% Ophth Soln 5 Ml Bottle) 0 ml EYELF BID [facility] Last Admin: 07/14/21 11:23 Dose: 1 drop Documented by: TIEN Assessment/Plan Comment:: Assessment/plan: #1. Dehydration: She is not drinking and not swallowing pills. I will speak with the family in the morning. I feel that liquids may not be in her best interest of her overall prognosis is very poor she is unable to swallow now. Hospice may be the recommended condition. #2. Urinary tract infection: We have started her on Rocephin. #3. Status post: Infection #4. Left eye and deafness #5. History hypertension #6. History of glaucoma. #7. History arthritis #8. Aortic valve stenosis - Mortality Measure Prognosis:: Poor
--- NOTE | 2021-07-14 19:05 | PCM.PN ---
- General Info Date of Service: 07/14/21 Subjective Update: She is not responsive only moans in pain unable to swallow any movement of her legs and arms causes her discomfort and pain. - Review of Systems General: Reports: Weakness Pulmonary: Reports: No Symptoms Cardiovascular: Reports: No Symptoms Musculoskeletal: Reports: Leg Pain Psychiatric: Reports: Other (obtunded condition) - Patient Data Vitals - Most Recent: Last Vital Signs Temp 97.7 F 07/14/21 08:47 Pulse 95 07/14/21 08:47 Resp 20 07/14/21 08:47 BP 73/42 L 07/14/21 08:47 Pulse Ox 95 07/14/21 08:47 Weight - Most Recent: 138 lb Lab Results Last 24 Hours: Laboratory Results - last 24 hr 07/13/21 07/14/21 07/14/21 Range/Units 22:16 01:30 05:43 WBC 10.2 (4.5-11.0) K/uL RBC 3.12 L (3.30-5.50) M/uL Hgb 10.1 L (12.0-15.0) g/dL Hct 31.5 L (36.0-48.0) % MCV 101 H (80-98) fL MCH 32 H (27-31) pg MCHC 32 (32-36) % Plt Count 132 L (150-400) K/uL Neut % (Auto) 74.3 H (36-66) % Lymph % (Auto) 11.6 L (24-44) % Spink % (Auto) 13.8 H (2-6) % Eos % (Auto) 0.2 L (2-4) % Baso % (Auto) 0.1 (0-1) % Sodium (140-148) mmol/L Potassium (3.6-5.2) mmol/L Chloride (100-108) mmol/L Carbon Dioxide (21-32) mmol/L Anion Gap (5.0-14.0) mmol/L BUN (7-18) mg/dL Creatinine (0.6-1.0) mg/dL Est Cr Clr Drug Dosing mL/min Estimated GFR (MDRD) (>60) Glucose (74-106) mg/dL Calcium (8.5-10.1) mg/dL Total Bilirubin (0.2-1.0) mg/dL AST (15-37) U/L ALT (12-78) U/L Alkaline Phosphatase (46-116) U/L Total Protein (6.4-8.2) g/dL Albumin (3.4-5.0) g/dL Globulin (2.3-3.5) g/dL Albumin/Globulin Ratio (1.2-2.2) Vitamin D 25-Hydroxy 75.4 (30-100) ng/mL SARS-CoV-2 RNA (JOSE MANUEL) Positive H (NEGATIVE) 07/14/21 Range/Units 05:43 WBC (4.5-11.0) K/uL RBC (3.30-5.50) M/uL Hgb (12.0-15.0) g/dL Hct (36.0-48.0) % MCV (80-98) fL MCH (27-31) pg MCHC (32-36) % Plt Count (150-400) K/uL Neut % (Auto) (36-66) % Lymph % (Auto) (24-44) % Spink % (Auto) (2-6) % Eos % (Auto) (2-4) % Baso % (Auto) (0-1) % Sodium 137 L (140-148) mmol/L Potassium 3.9 (3.6-5.2) mmol/L Chloride 102 (100-108) mmol/L Carbon Dioxide 18 L (21-32) mmol/L Anion Gap 20.9 H (5.0-14.0) mmol/L BUN 17 (7-18) mg/dL Creatinine 1.2 H (0.6-1.0) mg/dL Est Cr Clr Drug Dosing 32.09 mL/min Estimated GFR (MDRD) 43 L (>60) Glucose 65 L (74-106) mg/dL Calcium 7.9 L (8.5-10.1) mg/dL Total Bilirubin 0.6 (0.2-1.0) mg/dL AST 21 (15-37) U/L ALT 26 (12-78) U/L Alkaline Phosphatase 87 (46-116) U/L Total Protein 4.3 L (6.4-8.2) g/dL Albumin 1.9 L (3.4-5.0) g/dL Globulin 2.4 (2.3-3.5) g/dL Albumin/Globulin Ratio 0.8 L (1.2-2.2) Vitamin D 25-Hydroxy (30-100) ng/mL SARS-CoV-2 RNA (JOSE MANUEL) (NEGATIVE) Darrian Results Last 24 Hours: Microbiology 07/13/21 11:17 Urine Culture - Preliminary Urine, Quick Cath (In-Out) Med Orders - Current: Current Medications Acetaminophen (Acetaminophen 650 Mg Supp) 650 mg RECTAL Q4H PRN PRN Reason: Temperature Last Admin: 07/14/21 03:41 Dose: 650 mg Documented by: Amlodipine Besylate (Amlodipine 5 Mg Tab) 5 mg PO DAILY [facility] [place] Last Admin: 07/14/21 08:54 Dose: Not Given Documented by: Brimonidine Tartrate (Brimonidine 0.2% Ophth Soln 5 Ml Bottle) 0 ml EYELF BID [facility] [place] Last Admin: 07/14/21 11:23 Dose: 1 drop Documented by: Calcium Carbonate/Glycine (Calcium Carbonate 500 Mg Tab.Chew) 500 mg PO DAILY [facility] [place] Last Admin: 07/14/21 08:54 Dose: Not Given Documented by: Carvedilol (Carvedilol 12.5 Mg Tab) 25 mg PO BID [facility] [place] Last Admin: 07/14/21 08:53 Dose: Not Given Documented by: Dorzolamide HCl (Dorzolamide 2% Ophth Soln 10 Ml Bottle) 0 ml EYELF BID [facility] [place] Last Admin: 07/14/21 11:23 Dose: 1 drop Documented by: Folic Acid (Folic Acid 1 Mg Tab) 1 mg PO DAILY [facility] [place] Last Admin: 07/14/21 08:54 Dose: Not Given Documented by: Lisinopril (Lisinopril 20 Mg Tab) 40 mg PO DAILY [facility] [place] Last Admin: 07/14/21 08:54 Dose: Not Given Documented by: Lorazepam (Lorazepam Oral Concentrate 1mg/0.5ml U/D) 1 mg PO Q4H PRN PRN Reason: Anxiety Last Admin: 07/14/21 15:14 Dose: 1 mg Documented by: Methotrexate (Methotrexate 2.5 Mg Tab) 10 mg PO Q7D [facility] [place] Morphine Sulfate (Morphine 10 Mg/0.5 Ml Oral Syringe) 10 mg PO Q1H PRN PRN Reason: Pain Multivitamins/Minerals (Multivitamins With Iron/Calcium/Folic Acid/Minerals Tab) 1 tab PO DAILY [facility] [place] Last Admin: 07/14/21 08:54 Dose: Not Given Documented by: Timolol Maleate (Timolol Maleate 0.5% Ophth Soln 5 Ml Bottle) 0 ml EYELF BID [facility] [place] Last Admin: 07/14/21 11:23 Dose: 1 drop Documented by: Discontinued Medications Sodium Chloride (Normal Saline) 1,000 mls @ 1,000 mls/hr IV ASDIRECTED [facility] [place] Last Admin: 07/13/21 10:55 Dose: 1,000 mls/hr Documented by: Ceftriaxone Sodium 1 gm/ (Sodium Chloride) 50 mls @ 100 mls/hr IV ONETIME ONE Stop: 07/13/21 12:14 Last Admin: 07/13/21 11:27 Dose: 100 mls/hr Documented by: Sodium Chloride (Normal Saline) 1,000 mls @ 500 mls/hr IV ASDIRECTED [facility] [place] Last Admin: 07/13/21 16:58 Dose: 500 mls/hr Documented by: Ceftriaxone Sodium 1 gm/ (Sodium Chloride) 50 mls @ 100 mls/hr IV Q24H [facility] [place] Piperacillin Sod/Tazobactam (Sod 3.375 gm/ Sodium Chloride) 50 mls @ 100 mls/hr IV Q6H [facility] [place] Last Admin: 07/14/21 06:34 Dose: 100 mls/hr Documented by: Piperacillin/Tazobactam/ (Dextrose 3.375 gm/ Premix) 50 mls @ 100 mls/hr IV Q6H [facility] [place] Influenza Virus Vaccine (Pharmacy To Dose - Influenza Vaccine) 1 each IM ONETIME ONE Stop: 07/14/21 11:01 Influenza Virus Vaccine (Flu Vacc [id number](65yr Up)/Pf 240 Mcg/0.7 Ml Syringe) 240 mcg IM .ONCE ONE Stop: 07/14/21 09:01 Last Admin: 07/14/21 08:53 Dose: Not Given Documented by: Lorazepam (Lorazepam 2 Mg/Ml Sdv) 0.05 mg IVPUSH ONETIME ONE Stop: 07/13/21 15:40 Last Admin: 07/13/21 15:46 Dose: 0.05 mg Documented by: Lorazepam (Lorazepam 2 Mg/Ml Sdv) 0.5 mg IVPUSH ONETIME ONE Stop: 07/13/21 15:56 Last Admin: 07/13/21 15:57 Dose: 0.5 mg Documented by: Lorazepam (Lorazepam 2 Mg/Ml Sdv) 0.5 mg IVPUSH ONETIME ONE Stop: 07/13/21 20:05 Last Admin: 07/13/21 20:54 Dose: 0.5 mg Documented by: Lorazepam (Lorazepam 0.5 Mg Tab) 0.5 mg PO Q4H PRN PRN Reason: Agitation Lorazepam (Lorazepam 2 Mg/Ml Sdv) 0.5 mg IVPUSH Q4H PRN PRN Reason: Agitation Last Admin: 07/14/21 01:04 Dose: 0.5 mg Documented by: Morphine Sulfate (Morphine 2 Mg/Ml Syringe) 2 mg IVPUSH ONETIME ONE Stop: 07/13/21 20:07 Last Admin: 07/13/21 20:48 Dose: 2 mg Documented by: Morphine Sulfate (Morphine 2 Mg/Ml Syringe) 2 mg IVPUSH Q2H PRN PRN Reason: Pain (moderate 4-6) Last Admin: 07/14/21 08:36 Dose: 2 mg Documented by: Morphine Sulfate (Morphine 10 Mg/0.5 Ml Oral Syringe) 5 mg PO Q1H PRN PRN Reason: Pain Last Admin: 07/14/21 15:32 Dose: 5 mg Documented by: Ondansetron HCl (Ondansetron 4 Mg/2 Ml Sdv) 4 mg IVPUSH ONETIME ONE Stop: 07/13/21 20:54 Last Admin: 07/13/21 21:05 Dose: 4 mg Documented by: - Exam General: Obtunded Cardiovascular: Irregular Rhythm, Murmurs GI/Abdominal Exam: Soft Extremities: Leg Pain - Patient Data Lab Results Last 24 hrs: Laboratory Results - last 24 hr 07/13/21 07/14/21 07/14/21 Range/Units 22:16 01:30 05:43 WBC 10.2 (4.5-11.0) K/uL RBC 3.12 L (3.30-5.50) M/uL Hgb 10.1 L (12.0-15.0) g/dL Hct 31.5 L (36.0-48.0) % MCV 101 H (80-98) fL MCH 32 H (27-31) pg MCHC 32 (32-36) % Plt Count 132 L (150-400) K/uL Neut % (Auto) 74.3 H (36-66) % Lymph % (Auto) 11.6 L (24-44) % Spink % (Auto) 13.8 H (2-6) % Eos % (Auto) 0.2 L (2-4) % Baso % (Auto) 0.1 (0-1) % Sodium (140-148) mmol/L Potassium (3.6-5.2) mmol/L Chloride (100-108) mmol/L Carbon Dioxide (21-32) mmol/L Anion Gap (5.0-14.0) mmol/L BUN (7-18) mg/dL Creatinine (0.6-1.0) mg/dL Est Cr Clr Drug Dosing mL/min Estimated GFR (MDRD) (>60) Glucose (74-106) mg/dL Calcium (8.5-10.1) mg/dL Total Bilirubin (0.2-1.0) mg/dL AST (15-37) U/L ALT (12-78) U/L Alkaline Phosphatase (46-116) U/L Total Protein (6.4-8.2) g/dL Albumin (3.4-5.0) g/dL Globulin (2.3-3.5) g/dL Albumin/Globulin Ratio (1.2-2.2) Vitamin D 25-Hydroxy 75.4 (30-100) ng/mL SARS-CoV-2 RNA (JOSE MANUEL) Positive H (NEGATIVE) 07/14/21 Range/Units 05:43 WBC (4.5-11.0) K/uL RBC (3.30-5.50) M/uL Hgb (12.0-15.0) g/dL Hct (36.0-48.0) % MCV (80-98) fL MCH (27-31) pg MCHC (32-36) % Plt Count (150-400) K/uL Neut % (Auto) (36-66) % Lymph % (Auto) (24-44) % Spink % (Auto) (2-6) % Eos % (Auto) (2-4) % Baso % (Auto) (0-1) % Sodium 137 L (140-148) mmol/L Potassium 3.9 (3.6-5.2) mmol/L Chloride 102 (100-108) mmol/L Carbon Dioxide 18 L (21-32) mmol/L Anion Gap 20.9 H (5.0-14.0) mmol/L BUN 17 (7-18) mg/dL Creatinine 1.2 H (0.6-1.0) mg/dL Est Cr Clr Drug Dosing 32.09 mL/min Estimated GFR (MDRD) 43 L (>60) Glucose 65 L (74-106) mg/dL Calcium 7.9 L (8.5-10.1) mg/dL Total Bilirubin 0.6 (0.2-1.0) mg/dL AST 21 (15-37) U/L ALT 26 (12-78) U/L Alkaline Phosphatase 87 (46-116) U/L Total Protein 4.3 L (6.4-8.2) g/dL Albumin 1.9 L (3.4-5.0) g/dL Globulin 2.4 (2.3-3.5) g/dL Albumin/Globulin Ratio 0.8 L (1.2-2.2) Vitamin D 25-Hydroxy (30-100) ng/mL SARS-CoV-2 RNA (JOSE MANUEL) (NEGATIVE) Result Diagrams: 07/14/21 05:43 07/14/21 05:43 Darrian Results Last 24 hrs: Microbiology 07/13/21 11:17 Urine Culture - Preliminary Urine, Quick Cath (In-Out) Sepsis Event Note - Evaluation Sepsis Screening Result: No Definite Risk - Focused Exam Vital Signs: Vital Signs Temp Pulse Resp BP Pulse Ox 07/14/21 08:47 97.7 F 95 20 73/42 L 95 - Problem List Review Problem List Initiated/Reviewed/Updated: Yes - My Orders Last 24 Hours: My Active Orders 07/13/21 23:40 Admission Diagnosis [ADT] Routine Admission Status [Patient Status] [ADT] Routine 07/14/21 00:18 Blood Culture x2 Reflex Set [OM.PC] Urgent 07/14/21 01:17 Acetaminophen [Tylenol] 650 mg RECTAL Q4H PRN 07/14/21 01:30 CULTURE BLOOD [BC] Urgent 07/14/21 02:00 CULTURE BLOOD [BC] Urgent 07/14/21 Breakfast Regular Diet [DIET] 07/14/21 08:48 LORazepam [Ativan ORAL Concentrate 1MG/0.5 ML U/D] 1 mg PO Q4H PRN Comfort Measures [OM.PC] Routine Resuscitation Status Routine 07/14/21 09:00 Brimonidine [Alphagan 0.2% Ophth Soln] 0 ml EYELF BID Calcium Carbonate [Tums] 500 mg PO DAILY Dorzolamide [Trusopt 2% Ophth Soln] 0 ml EYELF BID Folic Acid 1 mg PO DAILY Multivitamins w-Iron/Ca/FA/Min [Thera M Plus] 1 tab PO DAILY amLODIPine [Norvasc] 5 mg PO DAILY carvediloL [Coreg] 25 mg PO BID lisinopriL [Prinivil] 40 mg PO DAILY timoloL maleate [Timoptic 0.5% Ophth Soln] 0 ml EYELF BID 07/14/21 15:44 Morphine [Morphine 10 MG/0.5 ML Oral Syringe] 10 mg PO Q1H PRN 07/16/21 08:00 Methotrexate 10 mg PO Q7D - Plan Plan:: Assessment/plan: #1. Dehydration: She is not drinking and not swallowing pills. I will speak with the family in the morning. I feel that liquids may not be in her best interest of her overall prognosis is very poor she is unable to swallow now. Hospice may be the recommended condition. #2. Urinary tract infection: We have started her on Rocephin. #3. Status post: Infection #4. Left eye and deafness #5. History hypertension #6. History of glaucoma. #7. History arthritis #8. Aortic valve stenosis In speaking with the power of trade mark attorney and the family we decided to change her to officially DNR/DNI and decided to withhold all antibiotics as well as IV fluids. She is unable to swallow and in a obtunded condition. Overall prognosis is a matter of time.
[2021-07-15] MEDS: Timolol Maleate 0.5% Ophth Soln 5 ML Bottle EYELF SCH ×3 (01:05→21:25)
[2021-07-15] MEDS: Dorzolamide 2% Ophth Soln 10 ML Bottle EYELF SCH ×4 (01:05→22:37)
[2021-07-15] MEDS: Brimonidine 0.2% Ophth Soln 5 ML Bottle EYELF SCH ×3 (01:05→21:25)
[2021-07-15] MEDS: Morphine 10 MG/0.5 ML Oral Syringe PO PRN ×9 (02:41→22:37)
[2021-07-15] MEDS: Folic Acid 1 MG Tab PO SCH (08:02)
[2021-07-15] MEDS: amLODIPine 5 MG Tab PO SCH (08:02)
[2021-07-15] MEDS: Lisinopril 20 MG Tab PO SCH (08:02)
[2021-07-15] MEDS: Carvedilol 12.5 MG Tab PO SCH ×2 (08:02→21:25)
[2021-07-15] MEDS: Multivitamins with Iron/Calcium/Folic Acid/Minerals Tab PO SCH (08:02)
[2021-07-15] MEDS: Calcium Carbonate 500 MG Tab.Chew PO SCH (08:03)
[2021-07-15] MEDS: Acetaminophen 650 MG Supp RECTAL PRN ×2 (12:59→20:01)
--- NOTE | 2021-07-15 13:13 | PCM.PN ---
- General Info Date of Service: 07/15/21 Subjective Update: She is not responsive to any communication as yesterday. Not taking oral fluids. Functional Status: Reports: Pain Controlled - Review of Systems General: Reports: Weakness HEENT: Reports: No Symptoms Pulmonary: Reports: No Symptoms Cardiovascular: Reports: No Symptoms Gastrointestinal: Reports: No Symptoms Musculoskeletal: Reports: Arm Pain, Leg Pain, Foot Pain, Joint Pain Psychiatric: Reports: Other (uptunded) - Patient Data Vitals - Most Recent: Last Vital Signs Temp 101.2 F H 07/15/21 11:48 Pulse 114 H 07/15/21 11:48 Resp 11 L 07/15/21 11:48 BP 100/53 L 07/15/21 11:48 Pulse Ox 85 L 07/15/21 11:48 Weight - Most Recent: 138 lb I&O - Last 24 Hours: Intake & Output 07/14/21 07/15/21 07/15/21 22:59 06:59 14:59 Intake Total 0 Balance 0 Darrian Results Last 24 Hours: Microbiology 07/13/21 11:17 Urine Culture - Final Urine, Quick Cath (In-Out) Klebsiella Pneumonia Ss Pneumo 07/14/21 01:30 Aerobic Blood Culture - Preliminary Blood - Arm, Right NO GROWTH AFTER 1 DAY Anaerobic Blood Culture - Preliminary NO GROWTH AFTER 1 DAY 07/14/21 02:00 Aerobic Blood Culture - Preliminary Blood - Arm, Right NO GROWTH AFTER 1 DAY Anaerobic Blood Culture - Preliminary NO GROWTH AFTER 1 DAY Med Orders - Current: Current Medications Acetaminophen (Acetaminophen 650 Mg Supp) 650 mg RECTAL Q4H PRN PRN Reason: Temperature Last Admin: 07/15/21 12:59 Dose: 650 mg Documented by: Amlodipine Besylate (Amlodipine 5 Mg Tab) 5 mg PO DAILY [facility] Last Admin: 07/15/21 08:02 Dose: Not Given Documented by: Brimonidine Tartrate (Brimonidine 0.2% Ophth Soln 5 Ml Bottle) 0 ml EYELF BID [facility] Last Admin: 07/15/21 08:01 Dose: 1 drop Documented by: Calcium Carbonate/Glycine (Calcium Carbonate 500 Mg Tab.Chew) 500 mg PO DAILY [facility] Last Admin: 07/15/21 08:03 Dose: Not Given Documented by: Carvedilol (Carvedilol 12.5 Mg Tab) 25 mg PO BID [facility] Last Admin: 07/15/21 08:02 Dose: Not Given Documented by: Dorzolamide HCl (Dorzolamide 2% Ophth Soln 10 Ml Bottle) 0 ml EYELF BID [facility] Last Admin: 07/15/21 08:03 Dose: 1 drop Documented by: Folic Acid (Folic Acid 1 Mg Tab) 1 mg PO DAILY [facility] Last Admin: 07/15/21 08:02 Dose: Not Given Documented by: Lisinopril (Lisinopril 20 Mg Tab) 40 mg PO DAILY [facility] Last Admin: 07/15/21 08:02 Dose: Not Given Documented by: Lorazepam (Lorazepam Oral Concentrate 1mg/0.5ml U/D) 1 mg PO Q4H PRN PRN Reason: Anxiety Last Admin: 07/14/21 15:14 Dose: 1 mg Documented by: Methotrexate (Methotrexate 2.5 Mg Tab) 10 mg PO Q7D [facility] Morphine Sulfate (Morphine 10 Mg/0.5 Ml Oral Syringe) 10 mg PO Q1H PRN PRN Reason: Pain Last Admin: 07/15/21 13:03 Dose: 10 mg Documented by: Multivitamins/Minerals (Multivitamins With Iron/Calcium/Folic Acid/Minerals Tab) 1 tab PO DAILY [facility] Last Admin: 07/15/21 08:02 Dose: Not Given Documented by: Timolol Maleate (Timolol Maleate 0.5% Ophth Soln 5 Ml Bottle) 0 ml EYELF BID [facility] Last Admin: 07/15/21 08:03 Dose: 1 drop Documented by: Discontinued Medications Sodium Chloride (Normal Saline) 1,000 mls @ 1,000 mls/hr IV ASDIRECTED [facility] Last Admin: 07/13/21 10:55 Dose: 1,000 mls/hr Documented by: Ceftriaxone Sodium 1 gm/ (Sodium Chloride) 50 mls @ 100 mls/hr IV ONETIME ONE Stop: 07/13/21 12:14 Last Admin: 07/13/21 11:27 Dose: 100 mls/hr Documented by: Sodium Chloride (Normal Saline) 1,000 mls @ 500 mls/hr IV ASDIRECTED [facility] Last Admin: 07/13/21 16:58 Dose: 500 mls/hr Documented by: Ceftriaxone Sodium 1 gm/ (Sodium Chloride) 50 mls @ 100 mls/hr IV Q24H [facility] Piperacillin Sod/Tazobactam (Sod 3.375 gm/ Sodium Chloride) 50 mls @ 100 mls/hr IV Q6H [facility] Last Admin: 07/14/21 06:34 Dose: 100 mls/hr Documented by: Piperacillin/Tazobactam/ (Dextrose 3.375 gm/ Premix) 50 mls @ 100 mls/hr IV Q6H [facility] Influenza Virus Vaccine (Pharmacy To Dose - Influenza Vaccine) 1 each IM ONETIME ONE Stop: 07/14/21 11:01 Influenza Virus Vaccine (Flu Vacc [id number](65yr Up)/Pf 240 Mcg/0.7 Ml Syringe) 240 mcg IM .ONCE ONE Stop: 07/14/21 09:01 Last Admin: 07/14/21 08:53 Dose: Not Given Documented by: Lorazepam (Lorazepam 2 Mg/Ml Sdv) 0.05 mg IVPUSH ONETIME ONE Stop: 07/13/21 15:40 Last Admin: 07/13/21 15:46 Dose: 0.05 mg Documented by: Lorazepam (Lorazepam 2 Mg/Ml Sdv) 0.5 mg IVPUSH ONETIME ONE Stop: 07/13/21 15:56 Last Admin: 07/13/21 15:57 Dose: 0.5 mg Documented by: Lorazepam (Lorazepam 2 Mg/Ml Sdv) 0.5 mg IVPUSH ONETIME ONE Stop: 07/13/21 20:05 Last Admin: 07/13/21 20:54 Dose: 0.5 mg Documented by: Lorazepam (Lorazepam 0.5 Mg Tab) 0.5 mg PO Q4H PRN PRN Reason: Agitation Lorazepam (Lorazepam 2 Mg/Ml Sdv) 0.5 mg IVPUSH Q4H PRN PRN Reason: Agitation Last Admin: 07/14/21 01:04 Dose: 0.5 mg Documented by: Morphine Sulfate (Morphine 2 Mg/Ml Syringe) 2 mg IVPUSH ONETIME ONE Stop: 07/13/21 20:07 Last Admin: 07/13/21 20:48 Dose: 2 mg Documented by: Morphine Sulfate (Morphine 2 Mg/Ml Syringe) 2 mg IVPUSH Q2H PRN PRN Reason: Pain (moderate 4-6) Last Admin: 07/14/21 08:36 Dose: 2 mg Documented by: Morphine Sulfate (Morphine 10 Mg/0.5 Ml Oral Syringe) 5 mg PO Q1H PRN PRN Reason: Pain Last Admin: 07/14/21 15:32 Dose: 5 mg Documented by: Ondansetron HCl (Ondansetron 4 Mg/2 Ml Sdv) 4 mg IVPUSH ONETIME ONE Stop: 07/13/21 20:54 Last Admin: 07/13/21 21:05 Dose: 4 mg Documented by: - Exam General: Obtunded Lungs: Clear to Auscultation Cardiovascular: Regular Rate, Murmurs GI/Abdominal Exam: Soft Extremities: Arm Pain, Leg Pain Skin: Warm - Patient Data Result Diagrams: 07/14/21 05:43 07/14/21 05:43 Darrian Results Last 24 hrs: Microbiology 07/13/21 11:17 Urine Culture - Final Urine, Quick Cath (In-Out) Klebsiella Pneumonia Ss Pneumo 07/14/21 01:30 Aerobic Blood Culture - Preliminary Blood - Arm, Right NO GROWTH AFTER 1 DAY Anaerobic Blood Culture - Preliminary NO GROWTH AFTER 1 DAY 07/14/21 02:00 Aerobic Blood Culture - Preliminary Blood - Arm, Right NO GROWTH AFTER 1 DAY Anaerobic Blood Culture - Preliminary NO GROWTH AFTER 1 DAY Sepsis Event Note - Evaluation Sepsis Screening Result: Sepsis Risk - Focused Exam Vital Signs: Vital Signs Temp Pulse Resp BP Pulse Ox 07/15/21 11:48 101.2 F H 114 H 11 L 100/53 L 85 L - Problem List Review Problem List Initiated/Reviewed/Updated: Yes - My Orders Last 24 Hours: My Active Orders 07/14/21 15:44 Morphine [Morphine 10 MG/0.5 ML Oral Syringe] 10 mg PO Q1H PRN 07/16/21 08:00 Methotrexate 10 mg PO Q7D - Plan Plan:: Assessment/plan: #1. Dehydration: She is not drinking and not swallowing pills. Will talk to Chelsie about Hospice care. I feel that liquids may not be in her best interest of her overall prognosis is very poor she is unable to swallow now . #2. Urinary tract infection: We have started her on Rocephin. #3. Status post: Infection #4. Left eye and deafness #5. History hypertension: BP 100/53 #6. History of glaucoma. #7. History arthritis #8. Aortic valve stenosis In speaking with the power of assistant prosecuting attorney and the family we decided to change her to officially DNR/DNI and decided to withhold all antibiotics as well as IV fl uids. She is unable to swallow and in a obtunded condition. Overall prognosis is a matter of time until demise..
[2021-07-15] MEDS: LORazepam ORAL Concentrate 1MG/0.5ML U/D PO PRN (18:25)
[2021-07-16] MEDS ORDERED: Methotrexate 2.5 MG Tab PO SCH (08:00)
--- NOTE | 2021-08-15 22:17 | PCM.DCSUM1 ---
Discharge Summary - Hospital Course Brief History: History of her of pneumonia over 2 weeks ago and went to [facility] and was sent back and now she's not eating and she is very dry and was diagnosed to having a urinary tract infection. She was positive for Covid 2 weeks ago. In speaking with family they decided to go on hospice and DNR. Also DNI. - Discharge Data Discharge Date: 07/15/21 Discharge Disposition: 20 Condition: - Referral to Home Health Primary Care Physician: PCP None - Patient Summary/Data Hospital Course: She came in and urinary sepsis and dehydration. She had been positive for Covid and was sent to [facility] and then returned once stabilized.Her overall prognosis was very poor and hypotension and evidence of sepsis in the family decided that she should be DNR/DNI and this was followed. She was also found to be positive for Covid. She and DNR/DNI was followed 17:59. - Discharge Plan *PRESCRIPTION DRUG MONITORING PROGRAM REVIEWED*: Not Applicable *COPY OF PRESCRIPTION DRUG MONITORING REPORT IN PATIENT TOBIN: Not Applicable Home Medications: Home Meds Acetaminophen [Tylenol] 1,000 mg PO TID 04/28/20 [History] Brimonidine Tartrate/Timolol [Combigan 0.2%-0.5% Eye Drops] 1 drop EYELF BID 04/28/20 [History] Brinzolamide [Azopt 1% Ophth Susp] 1 drop EYELF BID 04/28/20 [History] Cholecalciferol (Vitamin D3) [Vitamin D] 1 tab PO DAILY 04/28/20 [History] Furosemide [Lasix] 1 tab PO DAILY PRN 04/28/20 [History] Gabapentin [Neurontin] 200 mg PO BID 04/28/20 [History] amLODIPine Besylate [Amlodipine Besylate] 1 tab PO BID 04/28/20 [History] carvediloL [Carvedilol] 1 tab PO BID 04/28/20 [History] lisinopriL [Lisinopril] 1 tab PO QAM 04/28/20 [History] Calcium Carbonate [Calcium Antacid] 500 mg PO DAILY 07/13/21 [History] Ergocalciferol (Vitamin D2) [Vitamin D2] 1.25 mg PO WEEKLY 07/13/21 [History] Folic Acid 1 mg PO DAILY 07/13/21 [History] Multivit-Min/FA/Lycopen/Lutein [Certavite Senior Tablet] 1 tab PO DAILY 07/13/21 [History] metHOTREXate sodium [Methotrexate] 4 tab PO WEEKLY 07/13/21 [History] Forms: ED Department Discharge Referrals: PCP,None [Primary Care Provider] - - Discharge Summary/Plan Comment DC Time >30 min.: Yes (expiration) Total # of Minutes for Discharge Time: 4hrs. 50 mins Discharge Summary/Plan Comment: Assessment/plan: #1. Dehydration: She is not drinking and not swallowing pills. Will talk to Chelsie about Hospice care. I feel that liquids may not be in her best interest of her overall prognosis is very poor she is unable to swallow now. #2. Urinary tract infection: We have started her on Rocephin. #3. Status post: Cocid Infection #4. Left eye and deafness #5. History hypertension: BP 100/53 #6. History of glaucoma. #7. History arthritis #8. Aortic valve stenosis - General Info Date of Service: 07/15/21 Subjective Update: She was admitted with urinary sepsis in very poor condition and dehydration and never responded verbally. - Review of Systems General: Reports: Weakness Cardiovascular: Reports: No Symptoms Gastrointestinal: Reports: No Symptoms Genitourinary: Reports: Dysuria, Incontinence Psychiatric: Reports: Mood Lability, Other (Semi comatose condition) - Patient Data Vitals - Most Recent: Last Vital Signs Temp 214.7 F H 07/15/21 20:31 Pulse 114 H 07/15/21 11:48 Resp 11 L 07/15/21 11:48 BP 100/53 L 07/15/21 11:48 Pulse Ox 85 L 07/15/21 11:48 Weight - Most Recent: 138 lb Med Orders - Current: Current Medications Discontinued Medications Acetaminophen (Acetaminophen 650 Mg Supp) 650 mg RECTAL Q4H PRN PRN Reason: Temperature Last Admin: 07/15/21 20:01 Dose: 650 mg Documented by: Amlodipine Besylate (Amlodipine 5 Mg Tab) 5 mg PO DAILY [facility] Last Admin: 07/15/21 08:02 Dose: Not Given Documented by: Brimonidine Tartrate (Brimonidine 0.2% Ophth Soln 5 Ml Bottle) 0 ml EYELF BID [facility] Last Admin: 07/15/21 21:25 Dose: Not Given Documented by: Calcium Carbonate/Glycine (Calcium Carbonate 500 Mg Tab.Chew) 500 mg PO DAILY [facility] Last Admin: 07/15/21 08:03 Dose: Not Given Documented by: Carvedilol (Carvedilol 12.5 Mg Tab) 25 mg PO BID [facility] Last Admin: 07/15/21 21:25 Dose: Not Given Documented by: Dorzolamide HCl (Dorzolamide 2% Ophth Soln 10 Ml Bottle) 0 ml EYELF BID [facility] Last Admin: 07/15/21 22:37 Dose: 1 drop Documented by: Folic Acid (Folic Acid 1 Mg Tab) 1 mg PO DAILY [facility] Last Admin: 07/15/21 08:02 Dose: Not Given Documented by: Sodium Chloride (Normal Saline) 1,000 mls @ 1,000 mls/hr IV ASDIRECTED [facility] Last Admin: 07/13/21 10:55 Dose: 1,000 mls/hr Documented by: Ceftriaxone Sodium 1 gm/ (Sodium Chloride) 50 mls @ 100 mls/hr IV ONETIME ONE Stop: 07/13/21 12:14 Last Admin: 07/13/21 11:27 Dose: 100 mls/hr Documented by: Sodium Chloride (Normal Saline) 1,000 mls @ 500 mls/hr IV ASDIRECTED [facility] Last Admin: 07/13/21 16:58 Dose: 500 mls/hr Documented by: Ceftriaxone Sodium 1 gm/ (Sodium Chloride) 50 mls @ 100 mls/hr IV Q24H [facility] Piperacillin Sod/Tazobactam (Sod 3.375 gm/ Sodium Chloride) 50 mls @ 100 mls/hr IV Q6H [facility] Last Admin: 07/14/21 06:34 Dose: 100 mls/hr Documented by: Piperacillin/Tazobactam/ (Dextrose 3.375 gm/ Premix) 50 mls @ 100 mls/hr IV Q6H [facility] Influenza Virus Vaccine (Pharmacy To Dose - Influenza Vaccine) 1 each IM ONETIME ONE Stop: 07/14/21 11:01 Influenza Virus Vaccine (Flu Vacc [id number](65yr Up)/Pf 240 Mcg/0.7 Ml Syringe) 240 mcg IM .ONCE ONE Stop: 07/14/21 09:01 Last Admin: 07/14/21 08:53 Dose: Not Given Documented by: Lisinopril (Lisinopril 20 Mg Tab) 40 mg PO DAILY [facility] Last Admin: 07/15/21 08:02 Dose: Not Given Documented by: Lorazepam (Lorazepam 2 Mg/Ml Sdv) 0.05 mg IVPUSH ONETIME ONE Stop: 07/13/21 15:40 Last Admin: 07/13/21 15:46 Dose: 0.05 mg Documented by: Lorazepam (Lorazepam 2 Mg/Ml Sdv) 0.5 mg IVPUSH ONETIME ONE Stop: 07/13/21 15:56 Last Admin: 07/13/21 15:57 Dose: 0.5 mg Documented by: Lorazepam (Lorazepam 2 Mg/Ml Sdv) 0.5 mg IVPUSH ONETIME ONE Stop: 07/13/21 20:05 Last Admin: 07/13/21 20:54 Dose: 0.5 mg Documented by: Lorazepam (Lorazepam 0.5 Mg Tab) 0.5 mg PO Q4H PRN PRN Reason: Agitation Lorazepam (Lorazepam 2 Mg/Ml Sdv) 0.5 mg IVPUSH Q4H PRN PRN Reason: Agitation Last Admin: 07/14/21 01:04 Dose: 0.5 mg Documented by: Lorazepam (Lorazepam Oral Concentrate 1mg/0.5ml U/D) 1 mg PO Q4H PRN PRN Reason: Anxiety Last Admin: 07/15/21 18:25 Dose: 1 mg Documented by: Methotrexate (Methotrexate 2.5 Mg Tab) 10 mg PO Q7D [facility] Morphine Sulfate (Morphine 2 Mg/Ml Syringe) 2 mg IVPUSH ONETIME ONE Stop: 07/13/21 20:07 Last Admin: 07/13/21 20:48 Dose: 2 mg Documented by: Morphine Sulfate (Morphine 2 Mg/Ml Syringe) 2 mg IVPUSH Q2H PRN PRN Reason: Pain (moderate 4-6) Last Admin: 07/14/21 08:36 Dose: 2 mg Documented by: Morphine Sulfate (Morphine 10 Mg/0.5 Ml Oral Syringe) 5 mg PO Q1H PRN PRN Reason: Pain Last Admin: 07/14/21 15:32 Dose: 5 mg Documented by: Morphine Sulfate (Morphine 10 Mg/0.5 Ml Oral Syringe) 10 mg PO Q1H PRN PRN Reason: Pain Last Admin: 07/15/21 22:37 Dose: 10 mg Documented by: Multivitamins/Minerals (Multivitamins With Iron/Calcium/Folic Acid/Minerals Tab) 1 tab PO DAILY [facility] Last Admin: 07/15/21 08:02 Dose: Not Given Documented by: Ondansetron HCl (Ondansetron 4 Mg/2 Ml Sdv) 4 mg IVPUSH ONETIME ONE Stop: 07/13/21 20:54 Last Admin: 07/13/21 21:05 Dose: 4 mg Documented by: Timolol Maleate (Timolol Maleate 0.5% Ophth Soln 5 Ml Bottle) 0 ml EYELF BID [facility] Last Admin: 07/15/21 21:25 Dose: Not Given Documented by: - Exam HEENT: Reports: Pupils Equal Lungs: Reports: Clear to Auscultation Cardiovascular: Reports: Regular Rate GI/Abdominal Exam: Normal Bowel Sounds Extremities: Leg Pain Skin: Reports: Warm, Dry Psy/Mental Status: Reports: Labile Mood
== END 2021-07-15 22:45 | disposition expired | DRG 871 ==
LOC: JP.ED 09:54 → UNDOADMIN 23:40 → JP.MS 23:40 → UNDODISIN 07-15 22:45
PROVIDERS: ADMIT Internal Medicine; ATTEND Internal Medicine
DX: A41.9 Sepsis, unspecified organism (principal); U07.1 COVID-19; R53.1 Weakness; N39.0 Urinary tract infection, site not specified; G93.49 Other encephalopathy; I10 Essential (primary) hypertension; M19.90 Unspecified osteoarthritis, unspecified site; I35.0 Nonrheumatic aortic (valve) stenosis; H91.90 Unspecified hearing loss, unspecified ear; E86.0 Dehydration; Z66 Do not resuscitate; I95.9 Hypotension, unspecified; H40.9 Unspecified glaucoma; Z96.649 Presence of unspecified artificial hip joint; Z86.16 Personal history of COVID-19; Z51.5 Encounter for palliative care; Z87.01 Personal history of pneumonia (recurrent); Z79.899 Other long term (current) drug therapy; Z90.710 Acquired absence of both cervix and uterus; Z98.49 Cataract extraction status, unspecified eye
CPT/HCPCS: 36415; 70450; 71045; 71045-26; 80048; 80053; 81001; 82306; 85025; 87040; 87086; 87088; 87186; 96365; 96375; 96376; 99285; 99285-25; A9270-GY; J0696; J2060; J2270; J2405; J2543; J7030; U0002